=== PATIENT | female | born 1980 | race Caucasian/White ===

== ENCOUNTER 2017-02-05 17:16 | Emergency (ER) | payer BC ==
[2017-02-05 22:21] LABS: HEMOGLOBIN 11.5 gm/dl (12.3-15.3); RED BLOOD COUNT 4.2 M/UL (4.00-5.10); WHITE BLOOD COUNT 13.9 K/UL (4.5-11.0)
[2017-02-05 22:39] LABS: BUN/CREATININE RATIO 13 (0-10)
== END 2017-02-05 23:20 | disposition home or self-care (01) ==
LOC: ER1 17:16
PROVIDERS: Emergency Medicine
DX: N13.2 Hydronephrosis with renal and ureteral calculous obstruction (principal); N83.202 Unspecified ovarian cyst, left side; G43.909 Migraine, unspecified, not intractable, without status migrainosus; Z79.84 Long term (current) use of oral hypoglycemic drugs; Z79.899 Other long term (current) drug therapy
CPT/HCPCS: 36415; 80053; 81001; 83690; 84703; 85025; 87086; 96361; 96374; 96375; 99284; J2270; J2405; J7030

== ENCOUNTER 2020-11-07 12:33 | Outpatient (CLI) | payer BC, OTHER ==
[~2020-11-07 12:33] MED LIST: ASPIRIN CHEWABL81 MG PO; COLACE 100MG C100 MG PO; FEOSOL325 MG PO; PHENERGAN 12.12.5 M1 PO; PRENATAL VITAM1 EAC8 PO; PROCARDIA XL60 MG PO; TRANDATE 100 M100 MG PO
[2020-11-07 13:33] LABS: HEMOGLOBIN 9.2 gm/dl (12.3-15.3); RED BLOOD COUNT 3.49 M/UL (4.00-5.10); WHITE BLOOD COUNT 9.9 K/UL (4.5-11.0)
== END 2020-11-07 14:52 | disposition home or self-care (01) ==
LOC: GENOP 12:33
PROVIDERS: Obstetrics & Gynecology
DX: O26.892 Other specified pregnancy related conditions, second trimester (principal); Z3A.23 23 weeks gestation of pregnancy
CPT/HCPCS: 36415; 82247; 82248; 82565; 82570; 84156; 84450; 84460; 84550; 85025; 85379; 85384; 85610; 85730; G0463

== ENCOUNTER 2020-11-15 15:42 | Outpatient (CLI) | payer BC, OTHER | END 2020-11-15 17:50 | disposition home or self-care (01) | LOC: GENOP 15:42 | DX: O16.2 Unspecified maternal hypertension, second trimester (principal); O26.892 Other specified pregnancy related conditions, second trimester; G43.909 Migraine, unspecified, not intractable, without status migrainosus; O99.342 Other mental disorders complicating pregnancy, second trimester; F32.9 Major depressive disorder, single episode, unspecified; F41.9 Anxiety disorder, unspecified; Z3A.24 24 weeks gestation of pregnancy | CPT/HCPCS: 81001; G0463 ==

== ENCOUNTER 2021-02-07 12:53 | Emergency (ER) | payer BC, OTHER ==
[2021-02-07 13:42] LABS: HEMOGLOBIN 10.9 gm/dl (12.3-15.3); RED BLOOD COUNT 4.21 M/UL (4.00-5.10); WHITE BLOOD COUNT 5.1 K/UL (4.5-11.0)
[2021-02-07 14:05] LABS: BUN/CREATININE RATIO 8 (0-10)
[2021-02-07] MEDS ORDERED: ROBITUSSIN AC480 ML PO (16:52)
[2021-02-07] MEDS ORDERED: VENTOLIN HFA 66.7 GM INH (16:54)
[2021-02-07] MEDS ORDERED: CEFDINIR300 MG PO (17:02)
== END 2021-02-07 19:40 | disposition home or self-care (01) ==
LOC: ER1 12:53
PROVIDERS: Physician Assistant Medical
DX: U07.1 COVID-19 (principal); J12.82 Pneumonia due to coronavirus disease 2019; E87.6 Hypokalemia
CPT/HCPCS: 71046; 80053; 81001; 85025; 87086; 94640; 94664; 96372; 96374; 96376; 99285; J0696; J2550; J7030; U0002

== ENCOUNTER 2021-02-08 11:38 | Outpatient (CLI) | payer BC, OTHER ==
[~2021-02-08 11:38] MED LIST changes: +CEFDINIR300 MG PO; +ROBITUSSIN AC480 ML PO; +VENTOLIN HFA 66.7 GM INH
== END 2021-02-08 14:43 | disposition home or self-care (01) ==
LOC: GENOP 11:38
DX: O14.90 Unspecified pre-eclampsia, unspecified trimester (principal)
CPT/HCPCS: 59025

== ENCOUNTER 2021-02-09 23:19 | Emergency (ER) | payer BC, OTHER ==
[2021-02-10 00:17] LABS: HEMOGLOBIN 10.5 gm/dl (12.3-15.3); RED BLOOD COUNT 3.93 M/UL (4.00-5.10); WHITE BLOOD COUNT 5.7 K/UL (4.5-11.0)
[2021-02-10 00:42] LABS: BUN/CREATININE RATIO 6 (0-10)
[2021-02-10] MEDS ORDERED: PHENERGAN 25 MG25 M1 PO (02:17)
[2021-02-10] MEDS ORDERED: K-DUR TAB 20 M20 MEQ PO (02:17)
== END 2021-02-10 02:38 | disposition home or self-care (01) ==
LOC: ER1 23:19
PROVIDERS: Emergency Medicine
DX: E86.0 Dehydration (principal); U07.1 COVID-19; E87.6 Hypokalemia; I10 Essential (primary) hypertension
CPT/HCPCS: 71045; 80053; 81001; 82009; 82550; 82553; 83605; 83690; 83735; 83874; 83880; 84484; 85025; 93005; 96374; 99285; J2765

== ENCOUNTER 2021-02-11 10:07 | Inpatient (IN) | payer BC, OTHER ==
[~2021-02-11 10:07] MED LIST changes: +K-DUR TAB 20 M20 MEQ PO; +PHENERGAN 25 MG25 M1 PO
[2021-02-11 10:27] LABS: HEMOGLOBIN 11.5 gm/dl (12.3-15.3); RED BLOOD COUNT 4.25 M/UL (4.00-5.10)
[2021-02-11 10:28] LABS: WHITE BLOOD COUNT 9.2 K/UL (4.5-11.0)
[2021-02-11 10:54] LABS: BUN/CREATININE RATIO 6 (0-10)
== END 2021-02-11 17:31 | disposition short-term general hospital (02) | DRG 786 ==
LOC: ER1 10:07 → OB 14:25
PROVIDERS: Emergency Medicine; ADMIT Obstetrics & Gynecology
PROC: 3E0333Z Introduction of Anti-inflammatory into Peripheral Vein, Percutaneous Approach (ICD-10-PCS; 2021-02-11)
PROC: 5A0935A Assistance with Respiratory Ventilation, Less than 24 Consecutive Hours, High Flow/Velocity Cannula (ICD-10-PCS; 2021-02-11)
PROC: 10D00Z1 Extraction of Products of Conception, Low, Open Approach (ICD-10-PCS; principal; 2021-02-11 12:52)
DX: O98.52 Other viral diseases complicating childbirth (principal); U07.1 COVID-19; E87.4 Mixed disorder of acid-base balance; O99.52 Diseases of the respiratory system complicating childbirth; Z3A.37 37 weeks gestation of pregnancy; Z37.0 Single live birth; O11.4 Pre-existing hypertension with pre-eclampsia, complicating childbirth; O99.214 Obesity complicating childbirth; E66.01 Morbid (severe) obesity due to excess calories; O75.89 Other specified complications of labor and delivery
CPT/HCPCS: 36600; 59025; 71045; 80053; 81001; 82009; 82550; 82553; 82728; 82800; 82803; 83605; 83615; 83690; 83735; 83874; 83880; 84484; 85025; 87040; 93005; 96374; 99285; 99291; 99292; C9113; J0330; J1100; J2250; J2370; J2590; J2704; J2765; J3010; J7120

== ENCOUNTER → 2021-03-26 | Outpatient (CLI) | payer BC, OTHER | LOC: LBRF 13:47 | DX: N39.0 Urinary tract infection, site not specified (principal) | CPT/HCPCS: 81001; 87086 ==

== ENCOUNTER → 2022-01-17 | Outpatient (CLI) | payer OTHER ==
[2022-01-17 18:19] LABS: BORDETELLA PARAPERTUSSIS Not Detected (Not Detectd); BORDETELLA PERTUSSIS Not Detected (Not Detectd); CHLAMYDIA PNEUMONIAE Not Detected (Not Detectd); CORONAVIRUS HKU1 Not Detected (Not Detectd); CORONAVIRUS NL63 Not Detected (Not Detectd); CORONAVIRUS OC43 Not Detected (Not Detectd); CORONOAVIRUS 229E Not Detected (Not Detectd); HUMAN METAPNEUMOVIRUS Not Detected (Not Detectd); HUMAN RHINOVIRUS/ENTEROVIRUS Not Detected (Not Detectd); INFLUENZA A Not Detected (Not Detectd); INFLUENZA B Not Detected (Not Detectd); MYCOPLASMA PNEUMONIAE Not Detected (Not Detectd); PARAINFLUENZA VIRUS 1 Not Detected (Not Detectd); PARAINFLUENZA VIRUS 2 Not Detected (Not Detectd); PARAINFLUENZA VIRUS 4 Not Detected (Not Detectd); RESPIRATORY SYNCYTIAL VIRUS Not Detected (Not Detectd)
[2022-01-17 20:42] LABS: PARAINFLUENZA VIRUS 3 DETECTED (Not Detectd); SARS-CoV-2 NOT DETECTED (Not Detectd)
== END ==
LOC: RAD 17:23
PROVIDERS: Nurse Practitioner Primary Care
DX: R06.02 Shortness of breath (principal); Z20.822 Contact with and (suspected) exposure to COVID-19
CPT/HCPCS: 71046; 87633